=== PATIENT | female | born 1950 | race Two or more races ===

== ENCOUNTER 2018-01-10 10:11 | Emergency (ER) | payer MEDICARE, OTHER ==
--- NOTE | 2018-01-10 10:27 | PDOC ---
History of Present Illness - General Chief Complaint: Lightheaded Stated Complaint: DIZZINESS Time Seen by Provider: 01/10/18 10:16 History Source: Patient Exam Limitations: No Limitations - History of Present Illness Initial Comments: 01/10/18 10:35 Patient is a 67-year-old female with past medical history of hypertension, who presents emergency department today after a syncopal episode at home. Patient reports that she was standing when suddenly she felt very lightheaded dizzy. She states that her whole body and felt heavy. She was with her friend at the time who caught her and prevented her from falling. Patient came to approximately 10 seconds later. She states that she still currently feels slightly dizzy and very weak. This has never happened to her before. Reports eating breakfast this morning. Denies fevers, chills, recent illness, chest pain , shortness of breath, difficulty breathing, nausea, vomiting, diarrhea, frequency, urgency, hematuria. Past History - Travel Traveled outside of the country in the last 30 days: No Close contact w/someone who was outside of country & ill: No - Past Medical History Allergies/Adverse Reactions: Allergies Allergy/AdvReac Type Severity Reaction Status Date / Time No Known Allergies Allergy Verified 01/10/18 10:32 Home Medications: Ambulatory Orders Aspirin [ASA -] 81 mg PO DAILY 07/06/13 Atenolol [Tenormin -] 25 mg PO DAILY 07/06/13 HTN: Yes Hypercholesterolemia: Yes - Surgical History Abdominal Surgery: Yes (TUBAL LIGATION) - Suicide/Smoking/Psychosocial Hx Smoking Status: No Smoking History: Never smoked Number of Cigarettes Smoked Daily: 0 Review of Systems - Review of Systems Able to Perform ROS?: Yes Comments:: 01/10/18 10:38 CONSTITUTIONAL: Absent: fever, chills, diaphoresis, generalized weakness, malaise, loss of appetite HEENT: Absent: rhinorrhea, nasal congestion, throat pain, throat swelling, difficulty swallowing, mouth swelling, ear pain, eye pain, visual Changes CARDIOVASCULAR: Present: syncope Absent: chest pain, palpitations, irregular heart rate, peripheral edema RESPIRATORY: Absent: cough, shortness of breath, dyspnea with exertion, orthopnea, wheezing, stridor, hemoptysis GASTROINTESTINAL: Absent: abdominal pain, abdominal distension, nausea, vomiting, diarrhea, constipation, melena, hematochezia GENITOURINARY: Absent: dysuria, frequency, urgency, hesitancy, hematuria, flank pain, genital pain MUSCULOSKELETAL: Absent: myalgia, arthralgia, joint swelling SKIN: Absent: rash, itching, pallor HEMATOLOGIC/IMMUNOLOGIC: Absent: easy bleeding, easy bruising, lymphadenopathy, frequent infections ENDOCRINE: Absent: unexplained weight gain, unexplained weight loss, heat intolerance, cold intolerance NEUROLOGIC: Present: dizziness Absent: headache, focal weakness or paresthesias, unsteady gait, seizure, mental status changes, bladder or bowel incontinence PSYCHIATRIC: Absent: anxiety, depression, suicidal or homicidal ideation, hallucinations. Is the patient limited Chinese proficient: No *Physical Exam - Physical Exam Comments: 01/10/18 10:39 GENERAL: Well developed, well nourished. Awake and alert. No acute distress. HEENT: Normocephalic, atraumatic. PERRLA, EOMI. No conjunctival pallor. Sclera are non- icteric. Moist mucous membranes. Oropharynx is clear. NECK: Supple. Full ROM. No JVD. Carotid pulses 2+ and symmetric, without bruits. No thyromegaly. No lymphadenopathy. CARDIOVASCULAR: Regular rate and rhythm. No murmurs, rubs, or gallops. Distal pulses are 2+ and symmetric. PULMONARY: No evidence of respiratory distress. Lungs clear to auscultation bilaterally. No wheezing, rales or rhonchi. ABDOMINAL: Soft. Non-tender. Non-distended. No rebound or guarding. No organomegaly. Normoactive bowel sounds. MUSCULOSKELETAL Normal range of motion at all joints. No bony deformities or tenderness. No CVA tenderness. EXTREMITIES: No cyanosis. No clubbing. No edema. No calf tenderness. SKIN: Warm and dry. Normal capillary refill. No rashes. No jaundice. NEUROLOGICAL: Alert, awake, appropriate. Cranial nerves 2-12 intact. No deficits to light touch and temperature in face, upper extremities and lower extremities. No motor deficits in the in face, upper extremities and lower extremities. Normoreflexic in the upper and lower extremities. Normal speech. Toes are down- going bilaterally. Gait is normal without ataxia. PSYCHIATRIC: Cooperative. Good eye contact. Appropriate mood and affect. ED Treatment Course - LABORATORY CBC & Chemistry Diagram: 01/10/18 10:50 01/10/18 10:50 Medical Decision Making - Medical Decision Making 01/10/18 10:40 Patient is a 67-year-old female with past medical history of hypertension, who presents emergency department today for a syncopal episode at home. VSS, afebrile. Denies recent illness/travel. Pt. did eat breakfast this morning. Most likely seems like a vasovagal episode however will rule out secondary causes including ACS, arrhythmia, neurological pathology, electrolyte derangement. 1. basic labs 2. EKG, chest x-ray 3. Head CT 4. IV fluids 5. Reevaluate 01/10/18 10:49 EKG: Rate 54 bpm, normal intervals, normal axis; normal sinus rhythm. Inverted T wave in lead 4. 01/10/18 12:29 Lab work is grossly normal. Slight neutropenia at 3.3, otherwise unremarkable. First troponin is negative. Chest x-ray with no acute pathology. Second troponin ordered. Head CT is negative for fracture, bleed, or ischemia. No tele events since being in the emergency department. Will consult with patient PCP Dr. Rose. 01/10/18 12:[address] Rose, pt recently had full cardiac workup in November with no concerning factors, given stable labs and if second troponin is negative pt may be discharged home. He will see the patient tomorrow as an out patient. Pt reports feeling better after one liter of fluids. 01/10/18 14:35 Second troponin is negative. Possible vasovagal syncope. Will d/c home at this time to f/u with Dr. Rose. Results discussed with patient and copies of reports received. *DC/Admit/Observation/Transfer Diagnosis at time of Disposition: Syncope and collapse - Discharge Dispostion Disposition: HOME Condition at time of disposition: Stable Admit: No - Referrals Referrals: Wilbur Rose MD [Staff Physician] - - Patient Instructions Printed Discharge Instructions: DI for Syncope in Adults (Fainting) Additional Instructions: You had a fainting episode today. Please drink plenty of fluids. Eat a well- balanced diet. Your lab work, EKG, head CT, chest x-ray were all normal. Please follow-up with Dr. Rose tomorrow; he is expecting you. Return to emergency department sooner if you have lightheadedness, dizziness, nausea, vomiting, fevers, or any changes in your symptoms. - Post Discharge Activity
[2018-01-10] MEDS ORDERED: SODIUM CHLORIDE 1,000 ML IV STA (10:28)
[2018-01-10 10:33] VITALS: BMI 25.0
--- NOTE | 2018-01-10 10:47 | PDOC ---
*Physical Exam - Vital Signs Last Vital Signs Temp Pulse Resp BP Pulse Ox 98.4 F 55 L 17 127/56 100 01/10/18 10:15 01/10/18 10:15 01/10/18 10:15 01/10/18 10:15 01/10/18 10:15 Heart Score/ECG Review - ECG Impressions Comment:: 01/10/18 10:47 Twelve-lead EKG was performed and reviewed by me. There is normal sinus rhythm Rate of 54 PACs present T wave flattening noted in the latera leads No old EKGs for comparison ED Treatment Course - LABORATORY CBC & Chemistry Diagram: 01/10/18 10:50 01/10/18 10:50 Medical Decision Making - Medical Decision Making 01/10/18 10:46 The patient was seen and evaluated in conjunction with KIRSTEN Castellano under my direct supervision, ancillary studies were reviewed. I independently interviewed and evaluated the patient and I agree with the plan as outlined by KIRSTEN Castellano . *DC/Admit/Observation/Transfer Diagnosis at time of Disposition: Syncope and collapse - Discharge Dispostion Disposition: HOME Condition at time of disposition: Stable - Referrals Referrals: Wilbur Rose MD [Staff Physician] - - Patient Instructions Printed Discharge Instructions: DI for Syncope in Adults (Fainting) Additional Instructions: You had a fainting episode today. Please drink plenty of fluids. Eat a well- balanced diet. Your lab work, EKG, head CT, chest x-ray were all normal. Please follow-up with Dr. Rose tomorrow; he is expecting you. Return to emergency department sooner if you have lightheadedness, dizziness, nausea, vomiting, fevers, or any changes in your symptoms. - Post Discharge Activity
[2018-01-10 11:01] LABS: EOS % 2.1 % (0-4.5); HEMATOCRIT 35.9 % (32.4-45.2); HEMOGLOBIN 11.4 GM/dL (10.7-15.3); LYMPH % 45.2 % (8-40); MCH 23.4 pg (25.7-33.7); MCHC 31.8 g/dl (32.0-36.0); MEAN CELL VOLUME 73.7 fl (80-96); MEAN PLT VOLUME 9.8 fl (7.5-11.1); MONO % 8.3 % (3.8-10.2); NEUT % 43.4 % (42.8-82.8); PLATELET COUNT 169 K/MM3 (134-434); RBC 4.87 M/mm3 (3.60-5.2); RDW 13.8 % (11.6-15.6); WHITE BLOOD COUNT 3.3 K/mm3 (4.0-10.0)
[2018-01-10 11:15] LABS: INR 1.01 (0.82-1.09); PROTHROMBIN TIME (PATIENT) 11.4 SEC (9.98-11.88)
[2018-01-10 11:21] LABS: ALBUMIN 3.8 g/dl (3.4-5.0); ALK PHOS 56 U/L (45-117); ANION GAP 7 (8-16); BILIRUBIN,TOTAL 0.5 mg/dL (0.2-1.0); BLOOD UREA NITROGEN 17 mg/dL (7-18); CALCIUM 8.8 mg/dL (8.5-10.1); CHLORIDE 102 mmol/L (98-107); CO2 31 mmol/L (21-32); CREATININE 0.9 mg/dL (0.55-1.02); GLUCOSE,RANDOM 109 mg/dL (74-106); MAGNESIUM 2.4 mg/dL (1.8-2.4); POTASSIUM 3.6 mmol/L (3.5-5.1); SGOT/AST 20 U/L (15-37); SGPT/ALT 23 U/L (12-78); SODIUM 140 mmol/L (136-145); TOT PROT 7.6 g/dl (6.4-8.2)
[2018-01-10 12:53] LABS: URINE APPEARANCE CLEAR; URINE BILIRUBIN NEGATIVE (<2.0 mg/dL); URINE BLOOD 1+ (NEGATIVE); URINE COLOR STRAW; URINE GLUCOSE (UA) NEGATIVE (NEGATIVE); URINE KETONE NEGATIVE (NEGATIVE); URINE LEUK ESTERASE TRACE (NEGATIVE); URINE NITRITE NEGATIVE (NEGATIVE); URINE PROTEIN NEGATIVE (NEGATIVE); URINE UROBILINOGEN NEGATIVE mg/dL (0.2-1.0)
[2018-01-10 12:59] LABS: URINE MUCUS RARE
--- NOTE | 2018-01-10 13:28 | EKG ---
Test Reason : Blood Pressure : / mmHG Vent. Rate : 054 BPM Atrial Rate : 054 BPM P-R Int : 154 ms QRS Dur : 084 ms QT Int : 420 ms P-R-T Axes : 013 029 060 degrees QTc Int : 398 ms SINUS BRADYCARDIA WITH PREMATURE ATRIAL COMPLEXES NONSPECIFIC T WAVE ABNORMALITY ABNORMAL ECG NO PREVIOUS ECGS AVAILABLE Confirmed by NADEEM ALLRED MD ([id number]) on 01/10/2018 1:28:19 PM Referred By: Confirmed By:NADEEM ALLRED MD
[2018-01-10 15:13] VITALS: BP 138/77; PULSE 62; TEMP 98.2
== END 2018-01-10 15:13 | disposition home or self-care (01) ==
LOC: JER 10:11
PROC: 3E0337Z Introduction of Electrolytic and Water Balance Substance into Peripheral Vein, Percutaneous Approach (ICD-10-PCS; principal; 2018-01-10)
DX: R55 Syncope and collapse (principal); I10 Essential (primary) hypertension; E78.00 Pure hypercholesterolemia, unspecified
CPT/HCPCS: 36415; 70450-TC; 71045-TC-FY; 80053; 81003; 81015; 82550; 83735; 84484; 85025; 85610; 87086; 93005; 93010; 99285-25; J7030

== ENCOUNTER 2019-07-31 13:36 | Emergency (ER) | payer MEDICARE, OTHER ==
[2019-07-31 13:52] VITALS: BP 119/68; PULSE 58; TEMP 97.8; BMI 24.2
[2019-07-31] MEDS ORDERED: ACETAMINOPHEN 325 MG TABLET (FP) PO ONE (14:01)
[2019-07-31] MEDS ORDERED: LIDOCAINE 5% TOPICAL PATCH TP ONE (14:01)
[2019-07-31] MEDS ORDERED: LIDOCAINE 5% TOPICAL PATCH ONE (14:03)
[2019-07-31] MEDS ORDERED: ACETAMINOPHEN 325 MG TABLET (FP) ONE (14:03)
--- NOTE | 2019-07-31 14:05 | PDOC ---
History of Present Illness - General Chief Complaint: Injury Stated Complaint: fall Time Seen by Provider: 07/31/19 13:49 History Source: Patient, Family Exam Limitations: No Limitations Past History - Past Medical History Allergies/Adverse Reactions: Allergies Allergy/AdvReac Type Severity Reaction Status Date / Time No Known Allergies Allergy Verified 07/31/19 13:53 Home Medications: Ambulatory Orders Aspirin [ASA -] 81 mg PO DAILY 07/06/13 Atenolol [Tenormin -] 25 mg PO DAILY 07/06/13 COPD: No HTN: Yes Hypercholesterolemia: Yes - Surgical History Abdominal Surgery: Yes (TUBAL LIGATION) - Immunization History Immunization Up to Date: No - Psycho Social/Smoking Cessation Hx Smoking Status: No Smoking History: Never smoked Have you smoked in the past 12 months: No Number of Cigarettes Smoked Daily: 0 Information on smoking cessation initiated: No Hx Alcohol Use: No Drug/Substance Use Hx: No *Physical Exam - Vital Signs Last Vital Signs Temp Pulse Resp BP Pulse Ox 97.8 F 58 L 16 119/68 100 07/31/19 13:46 07/31/19 13:46 07/31/19 13:46 07/31/19 13:46 07/31/19 13:46 - Physical Exam General Appearance: No: Apparent Distress HEENT: positive: Other (no head trauma) Neck: positive: Supple. negative: Tender lateral, Tender midline Musculoskeletal: positive: Vertebral Tenderness (mild along lumbar spine). negative: Muscle Spasm Extremity: positive: Other (swelling and TTP along L 5th MCP, no snuffbox tenderness, LUE neurovascularly intact) Integumentary: positive: Normal Color. negative: Ecchymosis, Bruising Neurologic: positive: Fully Oriented, Alert, Normal Mood/Affect, Motor Strength 5/5 Procedures - Splinting Splint Location: Left: Hand Pre-Proc Neuro Vasc Exam: normal Hand-Made Type: orthoglass Splint Type: Yes: Ulnar Post-Proc Neuro Vasc Exam: normal Frank Bandage: yes Sling: No Complications: No Post splint xray: No ED Treatment Course - RADIOLOGY Radiology Studies Ordered: Category Date Time Status HAND- LEFT [RAD] Stat Radiology 07/31/19 14:01 Ordered SPINE-LUMBAR SACRAL [RAD] Stat Radiology 07/31/19 14:01 Ordered Medical Decision Making - Medical Decision Making 69 y/o F hx of HTN and HLD presents with lower back and L 5th finger pain s/p mechanical fall last week. Patient states she slipped in the bathtub. Did not strike her head. No LOC occurred. Patient decided to get evaluated today on insistence of her family and a visiting nurse who saw patient today. Denies dizziness, headache, neck pain, sob, cp, abd pain, n/v, numbness/tingling/ weakness of extremities. Plan: R/O fracture Plan: Xray, tylenol, lido patch 07/31/19 14:03 LS xray - no fracture noted L hand xray - possible ?healing fracture along 5th metacarpal shaft, no displacement noted Placed in ulnar gutter splint 07/31/19 14:54 Discharge - Discharge Information Problems reviewed: Yes Clinical Impression/Diagnosis: Fall Qualifiers: Encounter type: initial encounter Qualified Code(s): W19.XXXA - Unspecified fall, initial encounter Metacarpal bone fracture Qualifiers: Encounter type: initial encounter Metacarpal bone: fifth Fracture type: closed Metacarpal location: shaft Fracture alignment: nondisplaced Laterality: left Qualified Code(s): S62.357A - Nondisplaced fracture of shaft of fifth metacarpal bone, left hand, initial encounter for closed fracture Condition: Stable - Follow up/Referral Referrals: Saray Rose MD [Primary Care Provider] - Steve Malin MD [Staff Physician] - 2 Days Elieser Sultana DO [Staff Physician] - 2 Days - Patient Discharge Instructions Patient Printed Discharge Instructions: DI for Boxer's Fracture Additional Instructions: Thank you for choosing [facility]. It was a pleasure taking care of you. You may take Tylenol 650 mg every 6 hours by mouth as needed for mild to moderate pain. Do not take more than 4000 mg of Tylenol in 1 day. You were referred to orthopedics for fracture of left hand Return to the Emergency Department if your symptoms worsen or persist or have other concerning symptoms. - Post Discharge Activity
== END 2019-07-31 15:02 | disposition home or self-care (01) ==
LOC: JER 13:36
PROC: 2W3DX1Z Immobilization of Left Lower Arm using Splint (ICD-10-PCS; principal; 2019-07-31)
DX: S62.357A Nondisplaced fracture of shaft of fifth metacarpal bone, left hand, initial encounter for closed fracture (principal); M54.5 Low back pain; W18.2XXA Fall in (into) shower or empty bathtub, initial encounter; Y93.E1 Activity, personal bathing and showering; Y92.031 Bathroom in apartment as the place of occurrence of the external cause; Y99.8 Other external cause status; I10 Essential (primary) hypertension; E78.00 Pure hypercholesterolemia, unspecified; Z98.51 Tubal ligation status
CPT/HCPCS: 72100-TC-FY; 73130-TC-LT-FY; 99281-25

== ENCOUNTER 2020-11-11 08:47 | Inpatient (IN) | payer OTHER ==
[2020-11-11 08:52] VITALS: BMI 27.4
[2020-11-11] MEDS ORDERED: SODIUM CHLORIDE 1,000 ML IV SCH (09:00)
[2020-11-11] MEDS ORDERED: ACETAMINOPHEN 1000 MG/100 ML VIAL (NON FORMULARY) IVPB ONE (09:22)
[2020-11-11] MEDS ORDERED: ACETAMINOPHEN INJECTION 100 ML IVPB ONE (09:49)
[2020-11-11 09:51] LABS: BASO % 0.1 % (0-2.0); HEMATOCRIT 37.1 % (32.4-45.2); HEMOGLOBIN 12.1 GM/dL (10.7-15.3); LYMPH % 8.2 % (8-40); MCH 23.5 pg (25.7-33.7); MCHC 32.7 g/dl (32.0-36.0); MEAN CELL VOLUME 72.1 fl (80-96); MEAN PLT VOLUME 9.7 fl (7.5-11.1); MONO % 5.6 % (3.8-10.2); NEUT % 86.1 % (42.8-82.8); PLATELET COUNT 182 K/MM3 (134-434); RBC 5.15 M/mm3 (3.60-5.2); RDW 13.6 % (11.6-15.6); WHITE BLOOD COUNT 11.4 K/mm3 (4.0-10.0)
[2020-11-11 09:57] LABS: INR 1.22 (0.83-1.09); PROTHROMBIN TIME (PATIENT) 14.7 SEC (9.7-13.0)
[2020-11-11 10:00] LABS: ACTIVATED PTT 28.5 SECONDS (25.2-36.5)
[2020-11-11 10:22] LABS: CHLORIDE 95 mmol/L (98-107); POTASSIUM 3.8 mmol/L (3.5-5.1); SODIUM 131 mmol/L (136-145)
[2020-11-11 10:24] LABS: ALBUMIN 3.3 g/dl (3.4-5.0); CALCIUM 8.9 mg/dL (8.5-10.1)
[2020-11-11 10:25] LABS: ANION GAP 11 MMOL/L (8-16); BLOOD UREA NITROGEN 11.6 mg/dL (7-18); CO2 26 mmol/L (21-32); GLUCOSE,RANDOM 146 mg/dL (74-106); LIPASE 51 U/L (73-393); MAGNESIUM 1.8 mg/dL (1.8-2.4)
[2020-11-11 10:27] LABS: SGOT/AST 20 U/L (15-37); SGPT/ALT 26 U/L (13-61)
[2020-11-11 10:28] LABS: PHOSPHOROUS 3.9 mg/dL (2.5-4.9)
[2020-11-11 10:29] LABS: BILIRUBIN,TOTAL 1.2 mg/dL (0.2-1); TOT PROT 7.1 g/dl (6.4-8.2)
[2020-11-11 10:30] LABS: ALK PHOS 52 U/L (45-117)
[2020-11-11 11:41] LABS: EPI CELLS 18 /uL (0-25.1); HYALINE CASTS 5 /uL (0-3.1); PH,URINE 5.5 (5.0-8.0); URINE APPEARANCE CLEAR; URINE BACTERIA 219 /uL (0-1359); URINE BILIRUBIN NEGATIVE (NEGATIVE); URINE COLOR YELLOW; URINE GLUCOSE (UA) NEGATIVE (NEGATIVE); URINE KETONE TRACE (NEGATIVE); URINE LEUK ESTERASE NEGATIVE (NEGATIVE); URINE NITRITE NEGATIVE (NEGATIVE); URINE PROTEIN TRACE (NEGATIVE); URINE RBC 228 /uL (0-23.9); URINE UROBILINOGEN 0.2 mg/dL (0.2-1.0); URINE WBC 14 /uL (0-25.8)
[2020-11-11] MEDS ORDERED: CIPROFLOXACIN 400 MG/D5W 400 MG/200 ML IVPB IVPB ONE (12:18)
[2020-11-11] MEDS: D5-1/2NS+20 MEQ KCL - 20 MEQ/1,000 ML INFUS.BAG IV SCH (16:09)
[2020-11-11] MEDS ORDERED: ACETAMINOPHEN 325 MG TABLET (FP) ONE (17:56)
[2020-11-11] MEDS ORDERED: PIPERACILLIN/TAZOB 3.375 GM 3.375 GM/50 ML BAG IVPB ONE (18:57)
[2020-11-11] MEDS: PIPERACILLIN/TAZOB 3.375 GM 3.375 GM in DEXTROSE 5%-WATER - 50 ML IVPB SCH (19:01)
[2020-11-11] MEDS: HEPARIN NA (PORCINE) 5,000 UNITS/ML 1ML VIAL SQ SCH (22:45)
[2020-11-12] MEDS ORDERED: DEXTROSE 5%-WATER - 50 ML IVPB ONE ×3 (01:41→17:24)
[2020-11-12] MEDS ORDERED: PIPERACILLIN/TAZOBACTAM 3.375 GM VIAL IVPB ONE ×3 (01:41→17:24)
[2020-11-12] MEDS: PIPERACILLIN/TAZOB 3.375 GM 3.375 GM in DEXTROSE 5%-WATER - 50 ML IVPB SCH ×5 (02:28→18:25)
[2020-11-12] MEDS ORDERED: oxyCODONE HCL 5 MG TABLET PO PRN (09:05)
[2020-11-12] MEDS ORDERED: morphine CARPU-JECT 2 MG/1 ML DISP.SYRIN IVPUSH PRN (09:05)
[2020-11-12 09:11] LABS: BASO % 0.2 % (0-2.0); EOS % 0.1 % (0-4.5); HEMATOCRIT 33.1 % (32.4-45.2); HEMOGLOBIN 10.8 GM/dL (10.7-15.3); LYMPH % 6.4 % (8-40); MCH 23.7 pg (25.7-33.7); MCHC 32.7 g/dl (32.0-36.0); MEAN CELL VOLUME 72.4 fl (80-96); MEAN PLT VOLUME 10.5 fl (7.5-11.1); MONO % 3.5 % (3.8-10.2); NEUT % 89.8 % (42.8-82.8); PLATELET COUNT 145 K/MM3 (134-434); RBC 4.57 M/mm3 (3.60-5.2); RDW 13.8 % (11.6-15.6); WHITE BLOOD COUNT 6.9 K/mm3 (4.0-10.0)
[2020-11-12] MEDS ORDERED: MORPHINE SULFATE 2 MG/ML VIAL IVPUSH PRN (09:11)
[2020-11-12] MEDS: METOPROLOL TARTRATE 25 MG TABLET (FP) PO SCH (09:12)
[2020-11-12] MEDS: ACETAMINOPHEN 325 MG TABLET (FP) PO PRN ×3 (09:12→22:11)
[2020-11-12] MEDS: HEPARIN NA (PORCINE) 5,000 UNITS/ML 1ML VIAL SQ SCH ×2 (09:17→22:10)
[2020-11-12 09:28] LABS: INR 1.41 (0.83-1.09); PROTHROMBIN TIME (PATIENT) 17.2 SEC (9.7-13.0)
[2020-11-12 10:04] LABS: POTASSIUM 3.7 mmol/L (3.5-5.1)
[2020-11-12 10:06] LABS: BLOOD UREA NITROGEN 6.8 mg/dL (7-18); CALCIUM 8.4 mg/dL (8.5-10.1)
[2020-11-12 10:09] LABS: CREATININE 0.8 mg/dL (0.55-1.3); PHOSPHOROUS 1.8 mg/dL (2.5-4.9)
[2020-11-12 10:10] LABS: BILIRUBIN,TOTAL 1.2 mg/dL (0.2-1)
[2020-11-12 10:11] LABS: TOT PROT 6.5 g/dl (6.4-8.2)
[2020-11-12] MEDS: D5-1/2NS+20 MEQ KCL - 20 MEQ/1,000 ML INFUS.BAG IV SCH (17:22)
[2020-11-13] MEDS ORDERED: DEXTROSE 5%-WATER - 50 ML IVPB ONE ×3 (01:08→16:37)
[2020-11-13] MEDS ORDERED: PIPERACILLIN/TAZOBACTAM 3.375 GM VIAL IVPB ONE ×3 (01:08→16:37)
[2020-11-13] MEDS: PIPERACILLIN/TAZOB 3.375 GM 3.375 GM in DEXTROSE 5%-WATER - 50 ML IVPB SCH ×3 (01:19→17:08)
[2020-11-13 10:10] LABS: BASO % 0.6 % (0-2.0); EOS % 0.1 % (0-4.5); HEMATOCRIT 32.1 % (32.4-45.2); HEMOGLOBIN 10.6 GM/dL (10.7-15.3); LYMPH % 9.2 % (8-40); MCH 23.7 pg (25.7-33.7); MEAN CELL VOLUME 71.9 fl (80-96); MEAN PLT VOLUME 10.2 fl (7.5-11.1); MONO % 5.1 % (3.8-10.2); PLATELET COUNT 152 K/MM3 (134-434); RBC 4.46 M/mm3 (3.60-5.2); RDW 13.6 % (11.6-15.6); WHITE BLOOD COUNT 3.9 K/mm3 (4.0-10.0)
[2020-11-13 10:35] LABS: ALBUMIN 2.8 g/dl (3.4-5.0); BLOOD UREA NITROGEN 6.3 mg/dL (7-18); CALCIUM 8.4 mg/dL (8.5-10.1)
[2020-11-13 10:38] LABS: CREATININE 0.8 mg/dL (0.55-1.3)
[2020-11-13] MEDS: METOPROLOL TARTRATE 25 MG TABLET (FP) PO SCH (10:39)
[2020-11-13] MEDS: HEPARIN NA (PORCINE) 5,000 UNITS/ML 1ML VIAL SQ SCH ×2 (10:39→21:13)
[2020-11-13 10:40] LABS: BILIRUBIN,TOTAL 0.7 mg/dL (0.2-1); TOT PROT 6.5 g/dl (6.4-8.2)
[2020-11-13 10:43] LABS: POTASSIUM 3.5 mmol/L (3.5-5.1)
[2020-11-13] MEDS: amLODIPine BESYLATE 5 MG TABLET (FP) PO SCH (12:25)
[2020-11-13] MEDS: D5-1/2NS+20 MEQ KCL - 20 MEQ/1,000 ML INFUS.BAG IV SCH (17:08)
[2020-11-13] MEDS: ACETAMINOPHEN 325 MG TABLET (FP) PO PRN (21:12)
[2020-11-14] MEDS ORDERED: PIPERACILLIN/TAZOBACTAM 3.375 GM VIAL IVPB ONE ×3 (02:44→17:09)
[2020-11-14] MEDS ORDERED: DEXTROSE 5%-WATER - 50 ML IVPB ONE ×3 (02:44→17:10)
[2020-11-14] MEDS: PIPERACILLIN/TAZOB 3.375 GM 3.375 GM in DEXTROSE 5%-WATER - 50 ML IVPB SCH ×3 (03:00→17:25)
[2020-11-14] MEDS: D5-1/2NS+20 MEQ KCL - 20 MEQ/1,000 ML INFUS.BAG IV SCH ×2 (06:53→21:04)
[2020-11-14] MEDS: amLODIPine BESYLATE 5 MG TABLET (FP) PO SCH (09:15)
[2020-11-14] MEDS: METOPROLOL TARTRATE 25 MG TABLET (FP) PO SCH (09:15)
[2020-11-14] MEDS: HEPARIN NA (PORCINE) 5,000 UNITS/ML 1ML VIAL SQ SCH ×2 (09:16→21:04)
[2020-11-14 09:54] LABS: BASO % 0.8 % (0-2.0); EOS % 2.7 % (0-4.5); HEMATOCRIT 34.7 % (32.4-45.2); HEMOGLOBIN 11.4 GM/dL (10.7-15.3); MCH 23.8 pg (25.7-33.7); MEAN CELL VOLUME 72.1 fl (80-96); MEAN PLT VOLUME 9.8 fl (7.5-11.1); MONO % 9.8 % (3.8-10.2); NEUT % 62.7 % (42.8-82.8); PLATELET COUNT 190 K/MM3 (134-434); RBC 4.81 M/mm3 (3.60-5.2); RDW 13.6 % (11.6-15.6); WHITE BLOOD COUNT 2.6 K/mm3 (4.0-10.0)
[2020-11-14 10:20] LABS: POTASSIUM 3.7 mmol/L (3.5-5.1)
[2020-11-14 10:23] LABS: ALBUMIN 2.9 g/dl (3.4-5.0); BLOOD UREA NITROGEN 5.4 mg/dL (7-18)
[2020-11-14 10:25] LABS: CALCIUM 8.6 mg/dL (8.5-10.1); CREATININE 0.8 mg/dL (0.55-1.3)
[2020-11-14 10:33] LABS: BILIRUBIN,TOTAL 0.6 mg/dL (0.2-1)
[2020-11-14] MEDS: ACETAMINOPHEN 325 MG TABLET (FP) PO PRN (20:23)
[2020-11-15] MEDS ORDERED: DEXTROSE 5%-WATER - 50 ML IVPB ONE ×3 (02:11→17:28)
[2020-11-15] MEDS ORDERED: PIPERACILLIN/TAZOBACTAM 3.375 GM VIAL IVPB ONE ×3 (02:11→17:28)
[2020-11-15] MEDS: PIPERACILLIN/TAZOB 3.375 GM 3.375 GM in DEXTROSE 5%-WATER - 50 ML IVPB SCH ×3 (02:40→17:31)
[2020-11-15] MEDS: ACETAMINOPHEN 325 MG TABLET (FP) PO PRN ×2 (09:08→21:14)
[2020-11-15] MEDS: METOPROLOL TARTRATE 25 MG TABLET (FP) PO SCH (09:09)
[2020-11-15] MEDS: amLODIPine BESYLATE 5 MG TABLET (FP) PO SCH (09:09)
[2020-11-15] MEDS: HEPARIN NA (PORCINE) 5,000 UNITS/ML 1ML VIAL SQ SCH ×2 (09:20→21:15)
[2020-11-15 10:13] LABS: CALCIUM 9.1 mg/dL (8.5-10.1)
[2020-11-15 10:14] LABS: ALBUMIN 2.7 g/dl (3.4-5.0); BLOOD UREA NITROGEN 3.1 mg/dL (7-18)
[2020-11-15 10:15] LABS: BILIRUBIN,TOTAL 0.5 mg/dL (0.2-1); TOT PROT 6.8 g/dl (6.4-8.2)
[2020-11-15 10:17] LABS: CREATININE 0.7 mg/dL (0.55-1.3)
[2020-11-16] MEDS ORDERED: PIPERACILLIN/TAZOBACTAM 3.375 GM VIAL IVPB ONE ×3 (01:03→17:41)
[2020-11-16] MEDS ORDERED: DEXTROSE 5%-WATER - 50 ML IVPB ONE ×3 (01:03→17:42)
[2020-11-16] MEDS: PIPERACILLIN/TAZOB 3.375 GM 3.375 GM in DEXTROSE 5%-WATER - 50 ML IVPB SCH ×3 (01:56→17:50)
[2020-11-16 08:41] LABS: EOS % 4.1 % (0-4.5); HEMATOCRIT 33.4 % (32.4-45.2); HEMOGLOBIN 10.9 GM/dL (10.7-15.3); LYMPH % 39.8 % (8-40); MCH 23.5 pg (25.7-33.7); MCHC 32.7 g/dl (32.0-36.0); MEAN CELL VOLUME 71.7 fl (80-96); MEAN PLT VOLUME 9.1 fl (7.5-11.1); MONO % 13.3 % (3.8-10.2); NEUT % 41.8 % (42.8-82.8); PLATELET COUNT 206 K/MM3 (134-434); RBC 4.65 M/mm3 (3.60-5.2); RDW 13.9 % (11.6-15.6); WHITE BLOOD COUNT 3.5 K/mm3 (4.0-10.0)
[2020-11-16] MEDS ORDERED: IRON SUCROSE INJECTION 300 MG in SODIUM CHLORIDE 235 ML IVPB ONE (08:46)
[2020-11-16 09:14] LABS: POTASSIUM 3.5 mmol/L (3.5-5.1)
[2020-11-16 09:22] LABS: CALCIUM 8.7 mg/dL (8.5-10.1)
[2020-11-16 09:23] LABS: ALBUMIN 2.7 g/dl (3.4-5.0)
[2020-11-16 09:25] LABS: BILIRUBIN,TOTAL 0.4 mg/dL (0.2-1)
[2020-11-16 09:26] LABS: CREATININE 0.7 mg/dL (0.55-1.3); TOT PROT 6.5 g/dl (6.4-8.2)
[2020-11-16] MEDS: amLODIPine BESYLATE 5 MG TABLET (FP) PO SCH (09:28)
[2020-11-16] MEDS: HEPARIN NA (PORCINE) 5,000 UNITS/ML 1ML VIAL SQ SCH ×2 (09:28→21:29)
[2020-11-16] MEDS: METOPROLOL TARTRATE 25 MG TABLET (FP) PO SCH (09:31)
[2020-11-16 11:02] LABS: BLOOD UREA NITROGEN 2.1 mg/dL (7-18)
[2020-11-16] MEDS ORDERED: MIDAZOLAM HCL 2 MG/2 ML SINGLE DOSE VIAL ONE (12:30)
[2020-11-16] MEDS ORDERED: PROPOFOL 20 ML ONE ×2 (12:31)
[2020-11-16] MEDS ORDERED: ROCURONIUM BROMIDE 100 MG/10 ML VIAL ONE (12:33)
[2020-11-16] MEDS ORDERED: SUCCINYLCHOLINE CHLORIDE 200 MG/10 ML SYRINGE ONE (12:33)
[2020-11-16] MEDS ORDERED: ceFAZolin 2 GRAM PREMIX BAG IVPB ONE (13:20)
[2020-11-16] MEDS ORDERED: BUPIVACAINE HCL/PF 0.5% (5 MG/ML) 30 ML VIAL IJ ONE (13:43)
[2020-11-16] MEDS ORDERED: NEOSTIGMINE METHYLSULFATE 0.5 MG/ML - 10 ML MDV ONE ×2 (14:36→14:54)
[2020-11-16] MEDS ORDERED: GLYCOPYRROLATE 0.2 MG/1 ML VIAL ONE (14:36)
[2020-11-16] MEDS ORDERED: ACETAMINOPHEN 325 MG TABLET (FP) PO PRN (15:01)
[2020-11-16] MEDS ORDERED: D5-1/2NS+20 MEQ KCL - 20 MEQ/1,000 ML INFUS.BAG IV SCH (15:01)
[2020-11-16] MEDS ORDERED: oxyCODONE HCL 5 MG TABLET PO PRN ×2 (15:01)
[2020-11-16] MEDS ORDERED: ONDANSETRON 4 MG/2 ML VIAL IVPUSH PRN (15:12)
[2020-11-16] MEDS ORDERED: ACETAMINOPHEN INJECTION 100 ML IVPB ONE (15:51)
[2020-11-16] MEDS ORDERED: HYDROmorphone HCl 2 MG/ML VIAL IVPUSH PRN ×2 (15:51→15:52)
[2020-11-16] MEDS ORDERED: ACETAMINOPHEN 1000 MG/100 ML VIAL (NON FORMULARY) IVPB ONE (15:51)
[2020-11-16] MEDS ORDERED: HYDROmorphone HCl 2 MG/ML VIAL ONE (15:51)
[2020-11-16] MEDS: LACTATED RINGERS SOLUTION 1,000 ML IV SCH (21:00)
[2020-11-17] MEDS ORDERED: DEXTROSE 5%-WATER - 50 ML IVPB ONE ×3 (00:39→18:09)
[2020-11-17] MEDS ORDERED: PIPERACILLIN/TAZOBACTAM 3.375 GM VIAL IVPB ONE ×3 (00:39→18:09)
[2020-11-17] MEDS: PIPERACILLIN/TAZOB 3.375 GM 3.375 GM in DEXTROSE 5%-WATER - 50 ML IVPB SCH ×3 (01:17→18:20)
[2020-11-17 09:31] LABS: HEMATOCRIT 33.2 % (32.4-45.2); HEMOGLOBIN 10.8 GM/dL (10.7-15.3); MCH 23.6 pg (25.7-33.7); MCHC 32.6 g/dl (32.0-36.0); MEAN CELL VOLUME 72.4 fl (80-96); MEAN PLT VOLUME 9.3 fl (7.5-11.1); PLATELET COUNT 241 K/MM3 (134-434); RBC 4.59 M/mm3 (3.60-5.2); WHITE BLOOD COUNT 8.5 K/mm3 (4.0-10.0)
[2020-11-17] MEDS: HEPARIN NA (PORCINE) 5,000 UNITS/ML 1ML VIAL SQ SCH ×2 (09:53→22:34)
[2020-11-17] MEDS: METOPROLOL TARTRATE 25 MG TABLET (FP) PO SCH (09:53)
[2020-11-17] MEDS: amLODIPine BESYLATE 5 MG TABLET (FP) PO SCH (09:53)
[2020-11-17 09:56] LABS: POTASSIUM 4.3 mmol/L (3.5-5.1)
[2020-11-17 10:38] LABS: CALCIUM 9.1 mg/dL (8.5-10.1)
[2020-11-17 10:39] LABS: ALBUMIN 2.7 g/dl (3.4-5.0); BLOOD UREA NITROGEN 4.2 mg/dL (7-18)
[2020-11-17 10:42] LABS: CREATININE 0.8 mg/dL (0.55-1.3)
[2020-11-17 10:43] LABS: BILIRUBIN,TOTAL 0.4 mg/dL (0.2-1); TOT PROT 6.7 g/dl (6.4-8.2)
[2020-11-17] MEDS: LACTATED RINGERS SOLUTION 1,000 ML IV SCH (18:20)
[2020-11-18] MEDS ORDERED: DEXTROSE 5%-WATER - 50 ML IVPB ONE ×2 (01:35→09:42)
[2020-11-18] MEDS ORDERED: PIPERACILLIN/TAZOBACTAM 3.375 GM VIAL IVPB ONE ×2 (01:35→09:42)
[2020-11-18] MEDS: PIPERACILLIN/TAZOB 3.375 GM 3.375 GM in DEXTROSE 5%-WATER - 50 ML IVPB SCH ×2 (01:37→10:11)
[2020-11-18] MEDS: amLODIPine BESYLATE 5 MG TABLET (FP) PO SCH (10:11)
[2020-11-18] MEDS: METOPROLOL TARTRATE 25 MG TABLET (FP) PO SCH (10:11)
[2020-11-18] MEDS: HEPARIN NA (PORCINE) 5,000 UNITS/ML 1ML VIAL SQ SCH ×2 (10:11→22:41)
[2020-11-18] MEDS ORDERED: traMADol HCL 50 MG TABLET PO PRN (12:41)
[2020-11-18 15:36] LABS: HEMATOCRIT 31.7 % (32.4-45.2); HEMOGLOBIN 10.3 GM/dL (10.7-15.3); MCH 23.5 pg (25.7-33.7); MCHC 32.6 g/dl (32.0-36.0); MEAN CELL VOLUME 72.3 fl (80-96); MEAN PLT VOLUME 9.1 fl (7.5-11.1); PLATELET COUNT 273 K/MM3 (134-434); RBC 4.39 M/mm3 (3.60-5.2); RDW 13.5 % (11.6-15.6); WHITE BLOOD COUNT 7.1 K/mm3 (4.0-10.0)
[2020-11-18 15:51] LABS: POTASSIUM 3.4 mmol/L (3.5-5.1)
[2020-11-18 15:53] LABS: CALCIUM 8.9 mg/dL (8.5-10.1)
[2020-11-18 15:54] LABS: MAGNESIUM 1.9 mg/dL (1.8-2.4)
[2020-11-18 15:57] LABS: CREATININE 0.8 mg/dL (0.55-1.3)
[2020-11-18] MEDS ORDERED: D5-1/2NS+40 MEQ KCL - 40 MEQ/1,000 ML INFUS.BAG IV SCH (17:30)
[2020-11-18] MEDS ORDERED: POTASSIUM CHLORIDE TABS 10 MEQ TABLET.ER (FP) PO ONE (18:49)
[2020-11-19 09:44] VITALS: BP 146/82; PULSE 74; TEMP 98.2
[2020-11-19] MEDS: HEPARIN NA (PORCINE) 5,000 UNITS/ML 1ML VIAL SQ SCH (09:45)
[2020-11-19] MEDS: METOPROLOL TARTRATE 25 MG TABLET (FP) PO SCH (09:45)
[2020-11-19] MEDS: amLODIPine BESYLATE 5 MG TABLET (FP) PO SCH (09:45)
== END 2020-11-19 15:38 | disposition home or self-care (01) | DRG 342 ==
LOC: JER 08:47 → JERBED 12:19 → J6S 21:33
PROVIDERS: ADMIT Family Medicine; ATTEND Family Medicine
PROC: 0DTJ4ZZ Resection of Appendix, Percutaneous Endoscopic Approach (ICD-10-PCS; principal; 2020-11-16 12:45)
DX: K35.20 Acute appendicitis with generalized peritonitis, without abscess (principal); E87.1 Hypo-osmolality and hyponatremia; E87.2 Acidosis; K52.9 Noninfective gastroenteritis and colitis, unspecified; I10 Essential (primary) hypertension; E78.5 Hyperlipidemia, unspecified; R51.9 Headache, unspecified; D72.819 Decreased white blood cell count, unspecified
CPT/HCPCS: 36415; 70450-TC; 71045-TC-FY; 74174-TC; 74177-TC; 80048; 80053; 81003; 82150; 82607; 82746; 83540; 83550; 83605; 83615; 83690; 83735; 84100; 84484; 85025; 85027; 85610; 85730; 86140; 86900; 87040; 87045; 87046; 87086; 87177; 87205; 87209; 87324; 87449; 93005; 93010; 94010; 94760; 97116-GP; 97161-GP; 99285-25; C9803; J0131; J1644; J1756; Q9967; U0003

== ENCOUNTER 2021-03-22 05:06 | Day surgery (SDC) | payer OTHER ==
[2021-03-22 12:10] VITALS: BMI 24.2
[2021-03-22 13:03] LABS: BLOOD UREA NITROGEN 12.6 mg/dL (7-18); CALCIUM 9.9 mg/dL (8.5-10.1); MAGNESIUM 2.6 mg/dL (1.8-2.4)
[2021-03-22 13:06] LABS: CREATININE 1.1 mg/dL (0.55-1.3)
[2021-03-22 14:07] VITALS: TEMP 97.5
[2021-03-22 14:58] VITALS: BP 106/79; PULSE 56
== END 2021-03-22 15:01 | disposition home or self-care (01) ==
LOC: JASU-ENDO 05:06
PROVIDERS: ATTEND Internal Medicine Gastroenterology
PROC: 0DBP8ZX Excision of Rectum, Via Natural or Artificial Opening Endoscopic, Diagnostic (ICD-10-PCS; principal; 2021-03-22 12:15)
DX: Z12.11 Encounter for screening for malignant neoplasm of colon (principal); K64.8 Other hemorrhoids; R94.8 Abnormal results of function studies of other organs and systems
CPT/HCPCS: 36415; 80048; 83735; 84100

== ENCOUNTER 2023-08-02 11:25 | Observation (INO) | payer OTHER ==
[2023-08-02] MEDS ORDERED: SODIUM CHLORIDE 1,000 ML IV ONE (12:19)
[2023-08-02 13:21] LABS: HEMATOCRIT 36.7 % (32.4-45.2); HEMOGLOBIN 11.7 G/dL (10.7-15.3); MCH 24.1 pg (25.7-33.7); MCHC 31.9 g/dl (32.0-36.0); MEAN CELL VOLUME 75.4 fl (80-96); MEAN PLT VOLUME 10.7 fl (7.5-11.1); PLATELET COUNT 159.7 10^3/uL (134-434); RBC 4.87 10^6/uL (3.60-5.2); RDW 16.7 % (11.6-15.6); WHITE BLOOD COUNT 3.6 10^3/uL (4.0-10.8)
[2023-08-02 13:27] LABS: PLATELET ESTIMATE ADEQUATE
[2023-08-02 13:57] LABS: EPITHELIAL CELLS 0-5 /hpf
[2023-08-02 14:07] LABS: POTASSIUM 3.8 mmol/L (3.5-5.1)
[2023-08-02 14:09] LABS: BLOOD UREA NITROGEN 10.4 mg/dL (7-18); CALCIUM 8.6 mg/dL (8.5-10.1)
[2023-08-02 14:10] LABS: ALBUMIN 3.4 g/dl (3.4-5.0)
[2023-08-02 14:13] LABS: CREATININE 1.1 mg/dL (0.55-1.3)
[2023-08-02 14:14] LABS: BILIRUBIN,TOTAL 0.7 mg/dL (0.2-1); TOT PROT 6.8 g/dl (6.4-8.2)
[2023-08-02] MEDS ORDERED: ACETAMINOPHEN 325 MG TABLET (FP) PO PRN (15:11)
[2023-08-02 18:34] VITALS: BMI 23.2
[2023-08-02] MEDS: INSULIN SLIDING SCALE (NOVOLOG) 1 VIAL SQ SCH ×2 (18:49→22:28)
[2023-08-02] MEDS: CARVEDILOL 6.25 MG TABLET (FP) PO SCH (22:25)
[2023-08-03 01:53] VITALS: RESP 18
[2023-08-03] MEDS: INSULIN SLIDING SCALE (NOVOLOG) 1 VIAL SQ SCH (06:58)
[2023-08-03] MEDS ORDERED: CHOLECALCIFEROL (VIT D3) 5000 UNITS (125 MCG) CAP PO SCH (10:00)
[2023-08-03] MEDS ORDERED: ASPIRIN 81 MG CHEWABLE TABLETS PO SCH (10:00)
[2023-08-03] MEDS ORDERED: EZETIMIBE 10 MG TABLET (FP) PO SCH (10:00)
[2023-08-03] MEDS ORDERED: FERROUS SO4 325 MG TABLET (FP) PO SCH (10:00)
[2023-08-03] MEDS ORDERED: MULTIVITAMINS (DAILY MVI) TABLET (FP) PO SCH (10:00)
[2023-08-03] MEDS: CARVEDILOL 6.25 MG TABLET (FP) PO SCH (10:25)
[2023-08-03 14:22] VITALS: BP 135/68; PULSE 66; TEMP 98.1
[2023-08-03] MEDS ORDERED: MIRTAZAPINE 15 MG TABLET (FP) PO SCH (22:00)
== END 2023-08-03 19:11 | disposition home or self-care (01) ==
LOC: FER 11:25 → FM/S 15:10 → UNDOADMOB 15:10 → FM/S 16:21 → UNDOADMOB 17:38 → FM/S 17:42
PROVIDERS: ADMIT Internal Medicine; ATTEND Internal Medicine
PROC: 3E0337Z Introduction of Electrolytic and Water Balance Substance into Peripheral Vein, Percutaneous Approach (ICD-10-PCS; principal; 2023-08-02)
DX: R55 Syncope and collapse (principal); E78.5 Hyperlipidemia, unspecified; I10 Essential (primary) hypertension
CPT/HCPCS: 36415; 71045-TC-FY; 80053; 81003; 81015; 82962; 83036; 84484; 85027; 93005; 93306-TC; 96360; 97116-GP; 97161-GP; 99285-25; G0378

== ENCOUNTER 2024-05-06 15:51 | Observation (INO) | payer OTHER ==
[2024-05-06] MEDS ORDERED: ACETAMINOPHEN INJECTION 100 ML IVPB ONE (16:47)
[2024-05-06 16:51] LABS: BASO % 0.5 % (0-2.0); EOS % 0.4 % (0-4.5); HEMATOCRIT 35.3 % (32.4-45.2); HEMOGLOBIN 11.5 GM/dL (10.7-15.3); LYMPH % 13.1 % (8-40); MCH 23.5 pg (25.7-33.7); MCHC 32.5 g/dl (32.0-36.0); MEAN CELL VOLUME 72.3 fl (80-96); MEAN PLT VOLUME 9.5 fl (7.5-11.1); MONO % 11.6 % (3.8-10.2); NEUT % 74.4 % (42.8-82.8); PLATELET COUNT 153 10^3/uL (134-434); RBC 4.88 M/mm3 (3.60-5.2); RDW 13.1 % (11.6-15.6); WHITE BLOOD COUNT 6.5 K/mm3 (4.0-10.0)
[2024-05-06] MEDS: ACETAMINOPHEN 1000 MG/100 ML BAG IVPB ONE (16:55)
[2024-05-06] MEDS: SODIUM CHLORIDE 0.9% 500 ML INFUS.BAG IV ONE (16:55)
[2024-05-06 16:56] LABS: EPI CELLS 2 /uL (0-25.1); HYALINE CASTS 0 /uL (0-3.1); PH,URINE 6.5 (5.0-8.0); URINE APPEARANCE CLEAR; URINE BACTERIA 14 /uL (0-1359); URINE BILIRUBIN NEGATIVE (NEGATIVE); URINE COLOR YELLOW; URINE GLUCOSE (UA) NEGATIVE (NEGATIVE); URINE KETONE NEGATIVE (NEGATIVE); URINE LEUK ESTERASE 1+ (NEGATIVE); URINE NITRITE NEGATIVE (NEGATIVE); URINE PROTEIN NEGATIVE (NEGATIVE); URINE RBC 188 /uL (0-23.9); URINE UROBILINOGEN 0.2 mg/dL (0.2-1.0); URINE WBC 22 /uL (0-25.8)
[2024-05-06 16:59] LABS: INR 1.05 (0.83-1.09); PROTHROMBIN TIME (PATIENT) 11.9 SEC (9.7-13.0)
[2024-05-06 17:02] LABS: ACTIVATED PTT 28.6 SECONDS (25.2-36.5)
[2024-05-06 17:29] LABS: POTASSIUM 3.7 mmol/L (3.5-5.1)
[2024-05-06 17:31] LABS: ALBUMIN 3.5 g/dl (3.4-5.0); BLOOD UREA NITROGEN 11.3 mg/dL (7-18); CALCIUM 8.8 mg/dL (8.5-10.1)
[2024-05-06 17:35] LABS: CREATININE 0.8 mg/dL (0.55-1.3)
[2024-05-06 17:36] LABS: BILIRUBIN,TOTAL 0.5 mg/dL (0.2-1); TOT PROT 7.1 g/dl (6.4-8.2)
[2024-05-06] MEDS: CEFTRIAXONE 1,000 MG in DEXTROSE 5%-WATER - 50 ML IVPB ONE (18:43)
[2024-05-06] MEDS ORDERED: ACETAMINOPHEN 325 MG TABLET (FP) PO PRN (23:11)
[2024-05-07] MEDS ORDERED: IBUPROFEN 400 MG TABLET (FP) PO PRN (00:31)
[2024-05-07 00:57] VITALS: BMI 22.8
[2024-05-07] MEDS: SODIUM CHLORIDE 1,000 ML IV STA (01:13)
[2024-05-07] MEDS: ACETAMINOPHEN 325 MG TABLET (FP) PO PRN (01:14)
[2024-05-07] MEDS: REMDESIVIR 200 MG in SODIUM CHLORIDE 250 ML IVPB ONE (01:25)
[2024-05-07] MEDS: MELATONIN 5 MG TABLETS PO ONE (03:28)
[2024-05-07 08:22] LABS: BASO % 0.6 % (0-2.0); EOS % 0.1 % (0-4.5); HEMATOCRIT 35.2 % (32.4-45.2); HEMOGLOBIN 11.3 GM/dL (10.7-15.3); LYMPH % 16.6 % (8-40); MCH 23.6 pg (25.7-33.7); MEAN CELL VOLUME 73.8 fl (80-96); MEAN PLT VOLUME 10.2 fl (7.5-11.1); MONO % 14.1 % (3.8-10.2); NEUT % 68.6 % (42.8-82.8); PLATELET COUNT 136 10^3/uL (134-434); RBC 4.78 M/mm3 (3.60-5.2); WHITE BLOOD COUNT 4.9 K/mm3 (4.0-10.0)
[2024-05-07 08:55] LABS: POTASSIUM 3.8 mmol/L (3.5-5.1)
[2024-05-07 08:59] LABS: ALBUMIN 3.2 g/dl (3.4-5.0); BLOOD UREA NITROGEN 7.6 mg/dL (7-18); CALCIUM 8.6 mg/dL (8.5-10.1)
[2024-05-07 09:00] LABS: MAGNESIUM 2.2 mg/dL (1.8-2.4)
[2024-05-07 09:02] LABS: CREATININE 0.8 mg/dL (0.55-1.3); PHOSPHOROUS 3.3 mg/dL (2.5-4.9)
[2024-05-07 09:04] LABS: BILIRUBIN,TOTAL 0.5 mg/dL (0.2-1); TOT PROT 6.6 g/dl (6.4-8.2)
[2024-05-07] MEDS: ASPIRIN 81 MG CHEWABLE TABLETS PO SCH (09:43)
[2024-05-07] MEDS: EZETIMIBE 10 MG TABLET (FP) PO SCH (09:43)
[2024-05-07] MEDS: METOPROLOL TARTRATE 25 MG TABLET (FP) PO SCH (09:44)
[2024-05-07] MEDS: ENOXAPARIN NA (PORCINE) 40 MG/0.4 ML DISP.SYRIN SQ SCH (09:44)
[2024-05-07] MEDS: CEFTRIAXONE 1 GM in DEXTROSE 5%-WATER - 50 ML IVPB SCH (12:41)
[2024-05-07] MEDS: MIRTAZAPINE 15 MG TABLET (FP) PO SCH (21:16)
[2024-05-08 08:43] LABS: BASO % 0.9 % (0-2.0); EOS % 1.8 % (0-4.5); HEMOGLOBIN 11.1 GM/dL (10.7-15.3); LYMPH % 34.9 % (8-40); MCH 23.4 pg (25.7-33.7); MCHC 31.8 g/dl (32.0-36.0); MEAN CELL VOLUME 73.8 fl (80-96); MEAN PLT VOLUME 9.9 fl (7.5-11.1); MONO % 16.4 % (3.8-10.2); PLATELET COUNT 142 10^3/uL (134-434); RBC 4.75 M/mm3 (3.60-5.2); WHITE BLOOD COUNT 3.2 K/mm3 (4.0-10.0)
[2024-05-08 08:51] LABS: POTASSIUM 3.7 mmol/L (3.5-5.1)
[2024-05-08 08:54] LABS: CALCIUM 8.7 mg/dL (8.5-10.1)
[2024-05-08 08:55] LABS: BLOOD UREA NITROGEN 9.7 mg/dL (7-18); MAGNESIUM 2.2 mg/dL (1.8-2.4)
[2024-05-08 08:58] LABS: CREATININE 0.9 mg/dL (0.55-1.3); PHOSPHOROUS 2.8 mg/dL (2.5-4.9)
[2024-05-08 08:59] LABS: BILIRUBIN,TOTAL 0.5 mg/dL (0.2-1)
[2024-05-08 09:00] LABS: TOT PROT 6.4 g/dl (6.4-8.2)
[2024-05-08] MEDS: ASPIRIN COATED 81 MG TABLET.EC PO SCH (10:31)
[2024-05-08] MEDS: REMDESIVIR 100 MG in SODIUM CHLORIDE 250 ML IVPB SCH (12:45)
[2024-05-08] MEDS: FLUTICASONE PROP 0.05% 16 GM NASAL SPRAY NS ONE (23:49)
[2024-05-09 11:46] LABS: HEMATOCRIT 35.5 % (32.4-45.2); HEMOGLOBIN 11.3 GM/dL (10.7-15.3); MCH 23.4 pg (25.7-33.7); MCHC 31.8 g/dl (32.0-36.0); MEAN CELL VOLUME 73.4 fl (80-96); MEAN PLT VOLUME 9.7 fl (7.5-11.1); PLATELET COUNT 165 10^3/uL (134-434); RBC 4.83 M/mm3 (3.60-5.2); RDW 13.4 % (11.6-15.6); WHITE BLOOD COUNT 2.5 K/mm3 (4.0-10.0)
[2024-05-09 11:55] LABS: POTASSIUM 3.7 mmol/L (3.5-5.1)
[2024-05-09 11:59] LABS: CALCIUM 8.6 mg/dL (8.5-10.1)
[2024-05-09 12:00] LABS: BLOOD UREA NITROGEN 13.6 mg/dL (7-18); MAGNESIUM 2.2 mg/dL (1.8-2.4)
[2024-05-09 12:03] LABS: BILIRUBIN,TOTAL 0.4 mg/dL (0.2-1); PHOSPHOROUS 3.3 mg/dL (2.5-4.9); TOT PROT 6.6 g/dl (6.4-8.2)
[2024-05-09 12:22] LABS: ANISOCYTOSIS 0; MACROCYTOSIS 0; PLATELET ESTIMATE ADEQUATE
[2024-05-09 14:16] VITALS: BP 134/73; PULSE 58; RESP 17; TEMP 97.9
== END 2024-05-09 15:48 | disposition home or self-care (01) ==
LOC: JER 15:51 → UNDOADMOB 18:49 → JERBED 18:49 → J4S 05-07 00:11 → JERBED 05-07 00:11 → INTOOBSV 05-08 10:25 → OBSVTOIN 05-08 10:25 → J4S 05-08 13:06 → JERBED 05-08 13:06
PROVIDERS: ADMIT Internal Medicine; ATTEND Internal Medicine
PROC: 3E03329 Introduction of Other Anti-infective into Peripheral Vein, Percutaneous Approach (ICD-10-PCS; principal; 2024-05-08)
PROC: 3E033NZ Introduction of Analgesics, Hypnotics, Sedatives into Peripheral Vein, Percutaneous Approach (ICD-10-PCS; 2024-05-08)
PROC: 3E023GC Introduction of Other Therapeutic Substance into Muscle, Percutaneous Approach (ICD-10-PCS; 2024-05-08)
PROC: 3E033GC Introduction of Other Therapeutic Substance into Peripheral Vein, Percutaneous Approach (ICD-10-PCS; 2024-05-08)
PROC: 3E0337Z Introduction of Electrolytic and Water Balance Substance into Peripheral Vein, Percutaneous Approach (ICD-10-PCS; 2024-05-08)
DX: U07.1 COVID-19 (principal); I10 Essential (primary) hypertension; E78.5 Hyperlipidemia, unspecified; R51.9 Headache, unspecified; N39.0 Urinary tract infection, site not specified; R55 Syncope and collapse
CPT/HCPCS: 0241U-QW; 36415; 70450-TC; 71045-TC-FY; 80053; 81003; 82962; 83735; 84100; 84484; 85025; 85610; 85730; 86850; 86900; 86901; 87086; 87186; 87635; 93005; 93010; 96361; 96365; 96366; 96367; 96372; 96375; 99285-25; G0378; J0131; J0248